=== PATIENT | female | born 1960 | race Caucasian/White ===

== ENCOUNTER 2021-04-05 11:52 | Emergency (ER) | payer OTHER, SELFPAY ==
[2021-04-05 12:07] VITALS: BP 130/82; PULSE 76; RESP 18; TEMP 37.2; O2SAT 98
--- NOTE | 2021-04-05 13:33 | ED.URI ---
HPI - URI/Sore Throat General Chief Complaint: Upper Respiratory Infection Stated Complaint: cough ears and throat pain History of Present Illness HPI Narrative: This is a 60-year-old female comes in complaining of congestion ear pressure that she states she has had for over 9 years. Patient states she seen her primary care provider who ordered her some Mucinex and antibiotics but it did not help patient states she still has congestion and she smokes a pack a day Related Data Home Medications Medication Instructions Recorded Confirmed amlodipine 10 mg PO DAILY 04/05/21 04/05/21 hydrochlorothiazide 12.5 mg PO DAILY 04/05/21 04/05/21 losartan 25 mg PO BID 04/05/21 04/05/21 pantoprazole 20 mg PO DAILY 04/05/21 04/05/21 Allergies Allergy/AdvReac Type Severity Reaction Status Date / Time No Known Allergies Allergy Unverified 06/03/18 13:56 Review of Systems Review of Systems: Congestion, ear pressure, All systems reviewed & are unremarkable except as noted in HPI and below PMFSH Comments At time as signature, I have reviewed and agree with nursing past medical, social, surgical and family history. Please see nursing chart for further information. There is no relevant family history pertinent to the presenting complaint. Exam Narrative: GENERAL:Well-appearing, in no acute distress. HEAD:Normocephalic, atraumatic. EYES: PERRLA . ENT: Nares clear, copious rhinorrhea or epistaxis. Fluid noted clear and TM mucous membranes moist. NECK: Supple. CHEST: Clear to auscultation. No respiratory distress. HEART: Regular rate and rhythm. ABDOMEN: Soft, normal active bowel sounds. EXTREMITIES: Normal range of motion. No edema. SKIN: Warm, dry, no rash. NEURO: No focal deficits. Alert and oriented x3. Course Course Emergency Course: Influenza negative Vital Signs Vital signs: Vital Signs Temperature 99.0 F 04/05/21 12:07 Pulse Rate 76 04/05/21 12:07 Respiratory Rate 18 04/05/21 12:07 Blood Pressure 130/82 04/05/21 12:07 Pulse Oximetry 98 04/05/21 12:07 Temperature 99.0 F 04/05/21 12:07 Pulse Rate 76 04/05/21 12:07 Respiratory Rate 18 04/05/21 12:07 Blood Pressure 130/82 04/05/21 12:07 Pulse Oximetry 98 04/05/21 12:07 MDM - URI/Sore Throat Differential Diagnosis Differential diagnosis: Likely upper respiratory infection, croup, otitis media, sinusitis, viral infection, influenza, pharyngitis and other Lab Data Labs: Influenza A Screen Negative Reference Range: Negative Influenza B Screen Negative Reference Range: Negative Discharge Plan Discharge Clinical Impression: Viral infection Upper respiratory infection Qualifiers: URI type: unspecified URI Qualified Code(s): J06.9 - Acute upper respiratory infection, unspecified Patient Disposition: Home, Self-Care Condition: Stable Instructions: Antibiotic Form, How to Stop Smoking (ED), Upper Respiratory Infection (ED), Earache (ED) Additional Instructions: Viral illness may last between 7-12days; antibiotic is NOT recommended at this time. Recommend antihistamine such as Benadryl at night time and Claritin/Zyrtec/Naida during the day Also, recommend symptomatic treatment includes: rest, fluids, and increase humidity of the air at home. Recommend Acetaminophen or nonsteroidal anti-inflammatory agents (NSAIDs) as directed in the bottle to reduce fever and/pain/headache. Avoid smoking/second-hand smoke. Limit visits to areas with large crowds. Please schedule a follow-up visit with your personal physician for further evaluation and treatment within 3-5days. Including recheck and discussion of your blood pressure. If your symptoms persist, change or worsen significantly before you can contact your personal physician then please, without delay, go to the emergency department for further evaluat
== END 2021-04-05 13:43 | disposition home or self-care (01) ==
PROVIDERS: Emergency Provider Nurse Practitioner Family; PCP Nurse Practitioner Family
DX: B34.9 Viral infection, unspecified (principal); J06.9 Acute upper respiratory infection, unspecified; F17.210 Nicotine dependence, cigarettes, uncomplicated
CPT/HCPCS: 87804; 99213; G0463

== ENCOUNTER 2022-04-11 13:39 | Emergency (ER) | payer OTHER, SELFPAY ==
[2022-04-11 13:45] VITALS: BP 123/66; PULSE 81; RESP 20; TEMP 36.7; O2SAT 96
[2022-04-11 14:04] VITALS: BP 123/66; PULSE 81; RESP 20; TEMP 36.7; O2SAT 96
--- NOTE | 2022-04-11 14:33 | ED.URI ---
HPI - URI/Sore Throat General Chief Complaint: Upper Respiratory Infection Stated Complaint: Headache/Chest Congestion Time Seen by Provider: 04/11/22 14:30 Source: patient, RN notes reviewed and old records reviewed Mode of arrival: ambulatory Limitations: no limitations History of Present Illness HPI Narrative: 61 year old female who presents to [facility] care with complaints of fever, cough, sore throat, ear pain, body aches and headache pain for the past 3 days. Patient reports that she has not had COVID vaccinations or flu shot. Patient reports that she has productive cough of green tinged mucous and has been taking Robitussin for her symptoms. MD elicited complaint: fever, cough, rhinorrhea and other (headaches, bodyaches) Pertinent past history: other (tobacco use) Onset (ago): day(s) (3) Pain scale (0-10): 10 Description of mucous: green Treatments prior to arrival: other (Robitussin) Related Data Home Medications Medication Instructions Recorded Confirmed amlodipine 10 mg tablet 10 mg PO DAILY 04/05/21 04/11/22 hydrochlorothiazide 12.5 mg capsule 12.5 mg PO DAILY 04/05/21 04/11/22 losartan 25 mg tablet 50 mg PO DAILY 04/05/21 04/11/22 ciprofloxacin HCl 0.3 % eye drops 1 drp EACH EYE DAILY 04/11/22 04/11/22 duloxetine 20 mg capsule,delayed 20 mg PO BID 04/11/22 04/11/22 release meloxicam 15 mg tablet 15 mg PO DAILY 04/11/22 04/11/22 pantoprazole 20 mg tablet,delayed 20 mg PO DAILY 04/11/22 04/11/22 release Allergies Allergy/AdvReac Type Severity Reaction Status Date / Time No Known Allergies Allergy Verified 04/11/22 14:00 Review of Systems Review of Systems: CONSTITUTIONAL: Reports malaise, chills, sweats, or fever. EYES: Denies visual changes, redness, or discharge. ENT: Reports rhinorrhea, congestion, sinus pain, bilateral otalgia and sore throat. CARDIOVASCULAR: Denies chest pain, palpitations, or edema. RESPIRATORY: Reports cough.? Report dyspnea with exertion GASTROINTESTINAL: Denies abdominal pain, nausea, vomiting, diarrhea SKIN: Denies rash or itching. MUSCULOSKELETAL: Reports myalgia. NEUROLOGIC: Reports headache. All systems reviewed & are unremarkable except as noted in HPI and below PMFSH Past Medical History Medical History (Updated 04/20/22 @ 20:10 by Franci Maharaj NP) GERD (gastroesophageal reflux disease) Hypertension Surgical History Surgical History (Updated 04/20/22 @ 20:10 by Franci Maharaj NP) H/O tubal ligation History of placement of ear tubes Social History Social History (Updated 04/20/22 @ 20:09 by Franci Maharaj NP) Smoking packs per day: 0.5 Smoking cigarettes per day: 10.0 Years smoked: 44 Smoking pack-years: 22.00 Smoking status: Current every day smoker Tobacco type: cigarettes Alcohol intake: current Alcohol use details: socia Substance use: never Gender identity (if verbalized by the patient): Female Comments At time of signature, agree with nursing past medical, surgical, social and family history. There is no relevant family history pertinent to the presenting complaint Exam Narrative: GENERAL: Well-appearing, well-nourished, and in no acute distress. HEAD: Normocephalic EYES: PERRLA, conjunctivae clear ENT: Nares clear, turbinates edematous and erythematous, clear discharge. Mucous membranes moist. TM pearly fleming with dull light reflex bilaterally; no tragal tenderness. Oropharynx erythematous without lesions. Tonsils not enlarged and without exudate, no drooling, no hoarseness, no trismus, uvula midline.post nasal drainage NECK: Supple. No lymphadenopathy CHEST: Clear decreased breath sounds on auscultation, breath sounds equal. No wheezing, rhonchi, rales, or stridor. No respiratory distress, speaks in full sentences. Cough SaO2 is 96% on room air HEART: Regular rate and rhythm. No murmur heard. SKIN: Warm, dry, no rash. NEURO: Alert and oriented x3. PSYCH: Normal mood and af
== END 2022-04-11 14:50 | disposition home or self-care (01) ==
PROVIDERS: Emergency Provider Registered Nurse; PCP Nurse Practitioner Family
DX: J10.1 Influenza due to other identified influenza virus with other respiratory manifestations (principal); I10 Essential (primary) hypertension; K21.9 Gastro-esophageal reflux disease without esophagitis
CPT/HCPCS: 87804; 99213; G0463

== ENCOUNTER 2024-03-07 09:39 | Emergency (ER) | payer OTHER, SELFPAY ==
[2024-03-07 09:50] VITALS: BP 136/73; PULSE 74; RESP 16; TEMP 36.8; O2SAT 98
--- NOTE | 2024-03-07 10:11 | ED.URI ---
HPI - URI/Sore Throat General Chief Complaint: Upper Respiratory Infection Stated Complaint: Congestion Time Seen by Provider: 03/07/24 10:11 Source: patient, RN notes reviewed and old records reviewed Mode of arrival: ambulatory Limitations: no limitations History of Present Illness HPI Narrative: 63-year-old female to [facility] with complaint of headache, sore throat, chest tightness, body aches, bilateral ear pain for 2 days. Patient states she has attempted to treat symptoms at home with Robitussin. Patient states that she has bilateral myringotomy tubes present and that she has an appointment with an ENT later this month. Patient endorses last ear infection was approximately 1 year ago. Patient denies chest pain, shortness of breath, difficulty swallowing, allergies, fever. Patient able to tolerate fluids by mouth. Patient resting an exam room in no acute distress. Respirations even and nonlabored. Related Data Home Medications Medication Instructions Recorded Confirmed amlodipine 10 mg tablet 10 mg PO DAILY 04/05/21 04/11/22 hydrochlorothiazide 12.5 mg capsule 12.5 mg PO DAILY 04/05/21 04/11/22 losartan 25 mg tablet 50 mg PO DAILY 04/05/21 04/11/22 ciprofloxacin HCl 0.3 % eye drops 1 drp EACH EYE DAILY 04/11/22 04/11/22 duloxetine 20 mg capsule,delayed 20 mg PO BID 04/11/22 04/11/22 release meloxicam 15 mg tablet 15 mg PO DAILY 04/11/22 04/11/22 pantoprazole 20 mg tablet,delayed 20 mg PO DAILY 04/11/22 04/11/22 release Allergies Allergy/AdvReac Type Severity Reaction Status Date / Time No Known Allergies Allergy Verified 03/07/24 10:04 Review of Systems Review of Systems: All systems reviewed & are unremarkable except as noted in HPI and below Constitutional: Constitutional: Reports as per HPI, Reports body ache(s) and Reports headache(s) Eyes: Eyes: Reports no additional eye complaints ENT: Reports as per HPI and Reports otalgia (Bilateral) Cardiovascular: Cardiovascular: Reports no additional cardiovascular complaints, Denies chest pain and Denies dyspnea Respiratory: Respiratory: Reports no additional respiratory complaints, Denies cough, Denies dyspnea and Reports other ( chest tightness) Musculoskeletal: Musculoskeletal: Reports no additional musculoskeletal complaints Neurologic: Reports system reviewed and no additional complaints, except as documented Psychiatric: Psychiatric: Reports no additional psychiatric complaints PMFSH Past Medical History Medical History GERD (gastroesophageal reflux disease) Hypertension Surgical History Surgical History H/O tubal ligation History of placement of ear tubes Social History Social History Smoking packs per day: 0.5 Smoking cigarettes per day: 10.0 Years smoked: 44 Smoking pack-years: 22.00 Smoking status: Current every day smoker Tobacco type: cigarettes Alcohol intake: current Alcohol use details: socia Substance use: never Gender identity (if verbalized by the patient): Female Comments At the time of my signature, I reviewed and agree with the nursing past medical, surgical, social, and family history. There is no relevant family history pertinent to the patient complaint. Exam Const: General: cooperative, comfortable, no acute distress, alert, tired appearing, uncomfortable and well nourished Nutritional Appearance: well nourished Orientation/consciousness: patient oriented x3 Limitations: no limitations HENMT: Head: normal to inspection Ears: external ears normal, Abnormal EAC present excessive cerumen bilateral, EAC tenderness bilateral and foreign body on the left and TM abnormal erythematous bilateral, with fluid behind the TM bilateral and with loss of landmarks bilateral Face/Nose/Sinus: Normal external nose present, Normal nares present, normal facial exam, No erythema and No edema Face and sinus: normal facial exam, no erythema and no edema Mouth: Yes Normal oral and palatal mucosa present Eyes: General: appearance normal, both eyes and all related structures Neck: Neck: normal visual inspection, full ROM and no meningeal signs Lymphatic: no lymphadenopathy noted and no lymphedema noted Chest: Chest palpation & inspection: normal inspection of the chest Resp: Effort & Inspection: normal respiratory effort and able to speak in complete sentences Auscultation: clear to auscultation bilaterally Cardio: Jugular venous distension: no JVD Rate: regular rate Rhythm: regular rhythm Back/Spine/Pelvis: Cervical Spine: cervical ROM normal Skin: General skin exam: normal color, no rashes or lesions noted and turgor normal Neuro: General: patient oriented x3, gait normal, moves all extremities and no meningeal signs Speech: normal speech Gait exam (Neuro): Normal gait present Extrem: General: normal to inspection, full ROM and capillary refill normal Psych: Appearance: grossly normal and well kempt Course Course Emergency Course: Some parts of this dictation were generated by voice recognition software and may contain typographical and/or grammatical inaccuracies. Level of Care: Express Care Visit Vital Signs Vital signs: Vital Signs Temperature 36.8 C 03/07/24 09:50 Pulse Rate 74 03/07/24 09:50 Respiratory Rate 16 03/07/24 09:50 Blood Pressure 136/73 03/07/24 09:50 Pulse Oximetry 98 03/07/24 09:50 Oxygen Delivery Room Air 03/07/24 09:50 Temperature 36.8 C 03/07/24 09:50 Pulse Rate 74 03/07/24 09:50 Respiratory Rate 16 03/07/24 09:50 Blood Pressure 136/73 03/07/24 09:50 Pulse Oximetry 98 03/07/24 09:50 Oxygen Delivery Room Air 03/07/24 10:05 reviewed MDM - URI/Sore Throat MDM Narrative Medical decision making narrative: 63-year-old female to Express Care with complaint of headache, sore throat, chest tightness, body aches, bilateral ear pain for 2 days. Patient states she has attempted to treat symptoms at home with Robitussin. Patient states that she has bilateral myringotomy tubes present and that she has an appointment with an ENT later this month. Patient endorses last ear infection was approximately 1 year ago. Patient denies chest pain, shortness of breath, difficulty swallowing, allergies, fever. Patient able to tolerate fluids by mouth. Patient resting an exam room in no acute distress. Respirations even and nonlabored. On exam, left EAC with excessive cerumen, appears that myringotomy tube has dislodged and is encapsulated in cerumen. Bilateral TMs erythematous with fluid. Bilateral EACs acutely tender. Findings consistent with otitis media. Patient tested negative in clinic for influenza, COVID, strep. Strep culture sent. Patient is sitting comfortably in exam room nontoxic in appearance. Patient appropriate for outpatient treatment and follow-up. Discharge instructions reviewed with patient, as well as provided in writing per nursing staff. The instructions also include specific and strict return/GO TO THE ER as well as f/u information. All questions have been answered, and the patient deny any further questions with discharge and discharge plan. Some parts of this dictation were generated by voice recognition software and may contain typographical and/or grammatical inaccuracies. Differential Diagnosis Differential diagnosis: Likely upper respiratory infection, croup, otitis media, sinusitis, viral infection, bronchitis, influenza and pharyngitis Lab Data Labs: Lab Results 03/07/24 Range/Units 10:19 POC Influenza A Ag Negative (Negative) POC Influenza B Ag Negative (Negative) POC SARS CoV-2 Ag Negative (Negative) POC Grp A Strep Screen Negative (Negative) Discharge Plan Discharge Clinical Impression: Bilateral acute otitis media, Excessive cerumen in left ear canal Patient Disposition: Home, Self-Care Condition: Stable Instructions: Ear Infection (ED) Additional Instructions: Your rapid strep swab was negative today at [facility]. A throat culture will be sent to the laboratory for further testing. If the test is positive, you will receive a phone call within 48 hours and an appropriate antibiotic will be initiated at that time. Your Covid test and influenza test were also negative clinic -Alternate Tylenol and Motrin per package directions for fever or pain. -Antihistamine medication such as Benadryl at night and Zyrtec/Claritin/Naida during the day can help improve symptoms. -Use Flonase twice a day for 5 days then daily to help reduce the inflammation and dry up your sinuses. -You can also use Sudafed or Mucinex. Be sure to drink plenty of water with these medications at least 8 ounces with every dose and it is important to drink 8 to 10 glasses of water per day. Water is a natural decongestant -Eat and drink things that are easy to swallow, like tea or soup, or popsicles. -Oral rinses such as: Salt water gargles and/or may use topical anesthetic (eg. Chloraseptic spray) or lozenges to relieve dryness or throat pain). -Frequent hand washing or hand dryerman/woman is one of the best ways to prevent spread of infection. -Using a vaporizer or humidifier at night will also help thin secretions and help with coughing up phlegm. -Follow up with primary care provider in 2-3 days if condition is not improving; or seek ER visit if you have trouble breathing, cannot drink enough fluids, have muffled voice, difficulty opening your mouth, or severe swelling. Prescriptions: New amoxicillin 875 mg tablet 875 mg PO Q12H Qty: 20 0RF No Action meloxicam 15 mg tablet 15 mg PO DAILY ciprofloxacin HCl 0.3 % drops 1 drp EACH EYE DAILY pantoprazole 20 mg tablet,delayed release (DR/EC) 20 mg PO DAILY duloxetine 20 mg capsule,delayed release(DR/EC) 20 mg PO BID codeine-guaifenesin 10-100 mg/5 mL liquid 10 ml PO Q6H PRN (Reason: cough) Qty: 200 0RF prednisone 20 mg tablet 20 mg PO BID Qty: 10 0RF losartan 25 mg tablet 50 mg PO DAILY amlodipine 10 mg tablet 10 mg PO DAILY hydrochlorothiazide 12.5 mg capsule 12.5 mg PO DAILY albuterol sulfate 90 mcg/actuation HFA aerosol inhaler 2 puff inhalation QID PRN (Reason: shortness of breath or wheezing) Qty: 8.5 0RF Follow-up/Referrals: Aniya,JOAQUÍN Javier [Primary Care Provider] -
[2024-03-07 10:23] LABS: EDCOVIDSCREEN Negative (Negative); EDINFLUASCREEN Negative (Negative); EDINFLUBSCREEN Negative (Negative); EDSTREPNEGPOS1 Negative (Negative)
== END 2024-03-07 10:45 | disposition home or self-care (01) ==
PROVIDERS: Emergency Provider Nurse Practitioner Family; PCP Nurse Practitioner Family
DX: H66.93 Otitis media, unspecified, bilateral (principal); H61.22 Impacted cerumen, left ear; Z20.822 Contact with and (suspected) exposure to COVID-19; F17.210 Nicotine dependence, cigarettes, uncomplicated; I10 Essential (primary) hypertension; K21.9 Gastro-esophageal reflux disease without esophagitis
CPT/HCPCS: 87081; 87426; 87804; 87880; 99213; G0463